=== PATIENT | female | born 1990 | race Caucasian/White ===

== ENCOUNTER 2021-11-11 09:53 | Emergency (ER) | payer BC, SELFPAY ==
--- NOTE | ~2021-11-11 | XR_ITS ---
EXAMINATION: XR chest 2V DATE: 11/11/2021 11:21 INDICATION: Chest fluttering. TECHNIQUE: Frontal and lateral views of the chest were obtained. COMPARISON: CT abdomen and pelvis 05/14/16 FINDINGS: There is mild scarring at left lung apex. No pleural effusion or pneumothorax. The heart si ze is normal. IMPRESSION: 1. Mild scarring at left lung apex. Reviewed, dictated and finalized at location A. [employer] ADVISOR
[2021-11-11 09:58] VITALS: BP 123/93; PULSE 112; RESP 16; TEMP 36.6; O2SAT 99
--- NOTE | 2021-11-11 11:04 | ECG_ITS ---
Measurements Intervals [place] Rate: 99 P: 66 ID: 145 QRS: 78 QRSD: 87 T: 46 QT: 327 QTc: 421 Interpretive Statements SINUS RHYTHM NORMAL ECG Electronically Signed On 11-11-2021 16:10:58 WINDOWS SYSTEM ADMIN by Fred Burris D.O.
[2021-11-11 11:15] VITALS: BP 126/88; PULSE 110; RESP 17; O2SAT 98
[2021-11-11 11:30] VITALS: BP 118/64; PULSE 98; RESP 11; O2SAT 100
--- NOTE | 2021-11-11 11:41 | ED.GENADULT ---
HPI - General Adult General Chief complaint: Neuro Symptoms/Deficit Stated complaint: neuro symptoms Time Seen by Provider: 11/11/21 10:42 Source: patient and RN notes reviewed Mode of arrival: ambulatory Limitations: no limitations History of Present Illness HPI narrative: This is a 31 year old female who presents for evaluation of anxiety. She states 1 week ago she was having floaters to her left eye so she was evaluated by an eye doctor. Her examination was unremarkable so she was referred to ER. She reports she had CTA brain and carotid at [place] 1 week ago. She was told that no blockages were found. Patient reports she has been having constant palpitations and funny feeling in chest for past week. She also reports getting since of impending doom, anxiousness. She also reports right arm tingling intermittently and sometimes she has tingling all over. She was evaluated in [place] twice in the past week for anxiousness, difficulty speaking. She reports having CT brain performed twice. Her symptoms resolved with Ativan. Patient denies focal weakness, headache, nausea, vomiting, cough or shortness of breath. Related Data Allergies Allergy/AdvReac Type Severity Reaction Status Date / Time No Known Allergies Allergy Verified 12/01/14 07:15 Review of Systems Review of Systems: All systems reviewed & are unremarkable except as noted in HPI and below PMFSH Past Medical History Medical History (Updated 11/11/21 @ 13:44 by Alessandra Galeana MD) Patient denies medical problems Surgical History Surgical History (Updated 11/11/21 @ 11:46 by Alessandra Galeana MD) No pertinent past surgical history Social History Social History (Updated 11/11/21 @ 11:46 by Alessandra Galeana MD) Smoking status: Never smoker Alcohol intake: current Alcohol use details: a few glasses of wine every day Substance use: never Exam Const: General: no acute distress and alert Orientation/consciousness: patient oriented x3 HENMT: Head: normocephalic and atraumatic Face and sinus: normal facial exam, sinuses nontender and face symmetric Mouth: Yes Normal oral and palatal mucosa present, Yes lip normal, Yes tongue normal, Yes oropharynx normal and Yes moist mucous membranes Throat: posterior oropharynx normal, tonsils normal and uvula midline Eyes: Conjunctivae: conjunctivae normal Pupils: Equal, round and reactive pupils present EOM: EOMs intact bilaterally Neck: Neck: normal visual inspection Chest: Chest palpation & inspection: normal inspection of the chest Resp: Effort & Inspection: normal respiratory effort and no retractions Auscultation: clear to auscultation bilaterally Cardio: Rate: regular rate Rhythm: regular rhythm Heart sounds: no murmurs GI: GI Palp: Yes Soft to palpation, No Tenderness to palpation present (GI) and No Guarding due to palpation present (GI) Auscultation: normal bowel sounds Back/Spine/Pelvis: Back: no CVA tenderness Skin: General skin exam: normal color Neuro: General: patient oriented x3, moves all extremities, no meningeal signs, no focal motor deficits and CN's II-XI intact bilaterally Cranial nerves: Yes Nystagmus not present Speech: normal speech Extrem: General: normal to inspection Psych: Mental Status: mental status grossly normal Affect: Anxious affect present (tearful) Course Reevaluation(s) Reevaluation #1: Patient has no neuro deficits to suggest need for additional Ct scan. Labs are unremarkable. She has appointment with PCP and she will follow up . Date: 11/11/21 Time: 13:42 Vital Signs Vital signs: Vital Signs Temperature 98 F 11/11/21 09:58 Pulse Rate 112 H 11/11/21 09:58 Respiratory Rate 16 11/11/21 09:58 Blood Pressure 123/93 H 11/11/21 09:58 Pulse Oximetry 99 11/11/21 09:58 Temperature 98 F 11/11/21 09:58 Pulse Rate 98 11/11/21 11:30 Respiratory Rate 11 L 11/11/21 11:30 Blood Pressure 118/64 11/11/21 11
[2021-11-11 11:42] LABS: Basophils Percent Auto 0.6 % (0.2-1.2); Eosinophils Absolute Auto 0.1 K/mm3 (0-0.3); Eosinophils Percent Auto 0.8 % (0-4.4); Hematocrit 49.2 % (37.0-47.0); Hemoglobin 16.8 g/dL (12.0-15.0); Immature Granulocyte Absolute 0.01 K/mm3 (0.00-0.031); Immature Granulocyte Percent A 0.2 % (0-0.5); Lymphocytes Absolute Auto 1.38 K/mm3 (0.9-3.2); Lymphocytes Percent Auto 21.3 % (18.3-44.2); Mean Corpuscular HGB Conc 34.1 g/dl (32-36); Mean Corpuscular Hemoglobin 31.7 pg (26-34); Mean Corpuscular Volume 92.8 fl (80-100); Mean Platelet Volume 10.5 fl (7.4-10.4); Monocytes Absolute Auto 0.3 K/mm3 (0.1-0.6); Monocytes Percent Auto 5.1 % (2.6-8.5); Neutrophils Absolute Auto 4.7 K/mm3 (1.3-6.7); Platelet Count Result 253 k/mm3 (150-375); White Blood Count 6.5 K/mm3 (4.5-10.0)
[2021-11-11 11:57] LABS: Prothrombin Time 12.6 Seconds (11.1-14.7)
[2021-11-11 11:58] LABS: Partial Thromboplastin Time 26.6 SECONDS (22.3-36.8)
[2021-11-11 12:13] LABS: D Dimer 0.27 ug/mL (<0.48)
[2021-11-11 12:22] LABS: Ethanol < 10 mg/dL (<10); Lactic Acid Reflex 0.7 mmol/L (0.7-2.1)
[2021-11-11 12:32] LABS: Amphetamine Screen Urine Negative (Negative); Barbiturate Screen Urine Negative (Negative); Benzodiazepines Screen Urine Negative (Negative); Cannabinoid Screen Urine Negative (Negative); Cocaine Screen Urine Negative (Negative); Methadone Screen Urine Negative (Negative); Opiate Screen Urine Negative (Negative); Phencyclidine Screen Urine Negative (Negative)
[2021-11-11 12:35] LABS: Alanine Aminotransferase 29 U/L (4-35); Alkaline Phosphatase 67 U/L (38-126); Anion Gap 7 mmol/L (8-16); Aspartate Amino Transferase 29 U/L (14-36); Bilirubin,Total 0.6 mg/dL (0.2-1.3); Blood Urea Nitrogen 10 mg/dL (7-17); Calcium 9.7 mg/dL (8.4-10.2); Carbon Dioxide 28 mmol/L (22-30); Chloride 109 mmol/L (98-107); Estimated CRCL calculation 93 ml/min; Estimated Glomerular Filt Rate > 60; Glucose 96 mg/dL (65-110); Magnesium 2.1 mg/dL (1.6-2.3); Potassium 4.6 mmol/L (3.4-5.0); Sodium 144 mmol/L (137-145)
[2021-11-11 12:46] LABS: Troponin I < 0.012 ng/mL (0.000-0.034)
== END 2021-11-11 13:57 | disposition home or self-care (01) ==
PROVIDERS: Emergency Provider General Practice; PCP Family Medicine
DX: R00.2 Palpitations (principal)
CPT/HCPCS: 36415; 71046; 80053; 80307; 81025; 83605; 83735; 84484; 85025; 85380; 85610; 85730; 93005; 99284